=== PATIENT | male | born 1955 | race Caucasian/White ===

== ENCOUNTER 2018-07-11 09:37 | Outpatient (RCR) | payer MEDICAID, SELFPAY ==
[2018-07-11] MEDS: Normal Saline Flush 10 ML SYR IVP (11:10)
[2018-07-11 11:52] LABS: Abs Immature Grans 0.01 k/cumm (0.0-0.09); Absolute Basophil Count 0.02 k/cumm (0.0-0.2); Absolute Eosinophil Count 0.17 k/cumm (0.0-0.7); Absolute Lymphocyte Count 0.41 k/cumm (1.2-3.4); Absolute Monocyte Count 0.37 k/cumm (0.11-0.7); Absolute Neutrophil Count 3.48 k/cumm (1.2-6.7); Basophils % 0.4; Eosinophils % 3.8; HCT 32.9 % (40.0-50.0); HGB 10.3 g/dL (13.5-17.5); Immature Grans % 0.2; Lymphocytes % 9.2; Mean Corp. HGB Concentration 31.3 g/dL (32.0-36.0); Mean Corpuscular Hemoglobin 27.1 pg (27.0-33.0); Mean Corpuscular Volume 86.6 fL (80-95); Monocytes % 8.3; Neutrophils % 78.1; Platelet Count 351 x1000/uL (130-400); RBC Distribution Width 16.5 % (11.8-14.1); White Blood Cell Count 4.46 k/cumm (4.4-10.8)
[2018-07-11 12:03] LABS: ALT 19 U/L (12-78); AST 16 U/L (15-37); Albumin 2.9 g/dL (3.4-5.0); Alkaline Phosphatase 116 U/L (46-116); BUN 6 mg/dL (7-18); Bilirubin, Total 0.3 mg/dL (0.2-1.0); CREATININE 0.69 mg/dL (0.70-1.30); Calcium 9.2 mg/dL (8.5-10.1); Chloride 100 mmol/L (98-107); Glucose 86 mg/dL (70-100); Potassium 3.7 mmol/L (3.5-5.1); Sodium 137 mmol/L (136-145); Total Protein 6.8 g/dL (6.4-8.2)
== END 2018-07-19 ==
LOC: INF 09:37
PROVIDERS: PCP Family Medicine; Visit Provider Nurse Practitioner Adult Health
DX: C09.1 Malignant neoplasm of tonsillar pillar (anterior) (posterior) (principal); Z45.2 Encounter for adjustment and management of vascular access device
CPT/HCPCS: 36591; 80053; 85025

== ENCOUNTER → 2018-07-11 10:56 | Outpatient (CLI) | payer MEDICAID, SELFPAY ==
--- NOTE | 2018-07-11 11:02 | DI.REPORT_ITS ---
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 There is a right subclavian indwelling catheter, the tip of which overlies the superior vena cava. An apparent drainage catheter overlies upper abdomen. Cardiac size is within normal limits. No pleural effusion seen. There is nodular radiodensity projected over the right mid lung laterally. Although this could be associated with the rib, the possibility of intrapulmonary mass is raised. Chest CT is suggested for correlation. Otherwise lungs appear clear. No pleural effusion seen. CONCLUSION: Question right intrapulmonary nodule laterally in the mid-lung. Chest CT suggested for further evaluation.
== END ==
PROVIDERS: PCP Family Medicine; Visit Provider Nurse Practitioner Adult Health
DX: C09.9 Malignant neoplasm of tonsil, unspecified (principal); R91.1 Solitary pulmonary nodule
CPT/HCPCS: 71046

== ENCOUNTER 2019-03-13 14:10 | Outpatient (CLI) | payer MEDICAID, SELFPAY ==
[2019-03-13 15:19] LABS: TSH 1.77 uIU/mL (0.358-3.74)
== END 2019-03-13 14:30 ==
PROVIDERS: PCP Family Medicine; Visit Provider Nurse Practitioner Adult Health
DX: C09.9 Malignant neoplasm of tonsil, unspecified (principal)
CPT/HCPCS: 36415; 84443

== ENCOUNTER 2019-03-25 15:03 | Outpatient (REF) | payer MEDICAID, SELFPAY ==
[2019-03-25 20:42] LABS: Anion Gap 11.6 mmol/L (3-11); BUN 11 mg/dL (7-18); CO2 27.4 mmol/L (21.0-32.0); CREATININE 0.92 mg/dL (0.70-1.30); Chloride 101 mmol/L (98-107); Glucose 134 mg/dL (70-100); Potassium 4.2 mmol/L (3.5-5.1); Sodium 140 mmol/L (136-145)
== END 2019-03-25 15:23 ==
LOC: NCHCN 15:03
PROVIDERS: PCP Family Medicine; Visit Provider Family Medicine
DX: L21.9 Seborrheic dermatitis, unspecified (principal); N39.46 Mixed incontinence; H66.019 Acute suppurative otitis media with spontaneous rupture of ear drum, unspecified ear
CPT/HCPCS: 80048

== ENCOUNTER 2019-11-24 13:48 | Outpatient (CLI) | payer MEDICAID, SELFPAY ==
[2019-11-24 19:01] LABS: TSH 0.82 uIU/mL (0.36-3.74)
== END 2019-11-24 14:08 ==
PROVIDERS: PCP Family Medicine; Visit Provider Preventive Medicine Undersea and Hyperbaric Medicine
DX: C09.9 Malignant neoplasm of tonsil, unspecified (principal)
CPT/HCPCS: 36415; 84443

== ENCOUNTER 2020-10-26 14:49 | Outpatient (CLI) | payer MEDICAID, SELFPAY ==
[2020-10-26 16:06] LABS: TSH 0.79 uIU/mL (0.36-3.74)
== END 2020-10-26 15:09 ==
PROVIDERS: PCP Family Medicine; Visit Provider Preventive Medicine Undersea and Hyperbaric Medicine
DX: C09.9 Malignant neoplasm of tonsil, unspecified (principal)
CPT/HCPCS: 36415; 84443

== ENCOUNTER 2020-11-08 21:24 | Outpatient (REF) | payer MEDICAID, SELFPAY ==
[2020-11-08 13:54] LABS: HCT 47.2 % (40.0-50.0); HGB 14.9 g/dL (13.5-17.5); MCH 27.4 pg (27.0-33.0); MCHC 31.6 % (32.0-36.0); MCV 86.8 fL (80-95); MPV 10.5 fL (8.0-11.0); Platelet Count 305 10^3/uL (130-400); RBC 5.44 10^6/uL (4.36-5.78); RDW 14.4 % (11.8-14.1); RDW-SD 45.1 fL; WBC 9.84 10^3/uL (4.4-10.8)
[2020-11-08 14:14] LABS: Anion Gap 7.1 mmol/L (3-11); BUN 10 mg/dL (7-18); CO2 29.9 mmol/L (21.0-32.0); CREATININE 0.97 mg/dL (0.70-1.30); Calculated LDL 52 mg/dL (<100); Chloride 102 mmol/L (98-107); Cholesterol 122 mg/dL (<200); Glucose 118 mg/dL (74-106); HDL Cholesterol 39 mg/dL (40-60); Potassium 4.3 mmol/L (3.5-5.1); Sodium 139 mmol/L (136-145); Triglyceride 159 mg/dL (<150)
[2020-11-08 14:20] LABS: Hemoglobin A1C 6.3 % (<5.7)
== END 2020-11-08 21:44 ==
LOC: NCHCN 21:24
PROVIDERS: PCP Family Medicine; Visit Provider Family Medicine
DX: D64.9 Anemia, unspecified (principal); E11.9 Type 2 diabetes mellitus without complications
CPT/HCPCS: 80048; 80061; 85027; 83036

== ENCOUNTER 2020-11-23 01:23 | Outpatient (CLI) | payer MEDICAID, SELFPAY ==
--- NOTE | 2020-11-23 | DI.CT_ITS ---
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 TECHNIQUE: Imaging Protocol: Axial CT angiography was performed with multi-slice acquisition and mu lti-planar and/or 3D reconstructions. CONTRAST MATERIAL: Intravenous: Omnipaque 350 Contrast volume:100 cc COMPARISON: CT HEAD AND CSPINE W/O CONTRAST from 03/14/2018 FINDINGS: CTA Neck With: The aortic arch anatomy is conventional ANTERIOR CIRCULATION: Left common carotid artery exhibits significant mural plaque both calcified and noncalcified in the n nicolasa and at the carotid bulb. There is heavily calcified plaque at the origin of the left internal ca rotid artery with a focal critical cyst stenosis estimated over 90 percent at this level. Above this level the internal carotid artery is patent in the left side of the neck as well as in the visualize d skull base. Right common carotid artery also exhibits significant calcified and noncalcified plaque and heavily c alcified plaque at the bulb and proximal internal carotid artery with significant tight stenosis in t he proximal ICA ICA approximately 80-90 percent. Patent above this level in the upper neck. POSTERIOR CIRCULATION: The left vertebral artery originates as an independent vessel off the aortic arch. It does not arise in conventional fashion off the left subclavian artery. \ Heart thin vessels in the foramen transverse area. The right vertebral artery appears occluded proxi sanchez. The left vertebral artery is thin vessel and contributes to the formation the thin basilar ar holden at the skull base. Please note that brain was not included in this CTA study. IMPRESSION: 1. There is abundant plaque in the carotid arteries with high-grade stenosis in both proximal interna l carotid arteries. 2. Right vertebral artery appears occluded. Left vertebral artery is a thin vessel. In addition, it originates off the aortic arch is an independent vessel instead of originating off of the left subcl mohini artery, as is usually the case. RADIATION DOSE DELIVERED: 367.91mGy.cm Total DLP DATA REPOSITORY: All CT scans at this facility are submitted to the National Radiology Data Registry (NRDR) Dose Index Registry (DIR) with the [employer] ([employer]). RADIATION OPTIMIZATION: All CT scans at this facility use at least one of these dose optimization te chniques: automated exposure control; mA and/or kV adjustment per patient size (includes targeted exa ms where dose is matched to clinical indication); or iterative reconstruction.
[2020-11-23] MEDS: Omnipaque 350 MG/ML 100 ML BTL IJ (15:42)
[2020-11-23] MEDS: Normal Saline - Diluent 50 ML VIAL IV (15:43)
== END 2020-11-23 01:43 ==
PROVIDERS: PCP Family Medicine; Visit Provider Family Medicine
DX: I65.23 Occlusion and stenosis of bilateral carotid arteries (principal); R68.89 Other general symptoms and signs; C09.9 Malignant neoplasm of tonsil, unspecified
CPT/HCPCS: 70491; J3490

== ENCOUNTER 2021-05-18 14:16 | Outpatient (REF) | payer MEDICAID, SELFPAY ==
[2021-05-18 16:36] LABS: COMMENT (LAB VIEW ONLY) 155.32 mg/dL; Microalb ug/mg Crea 49.8 ug/mg Cr
== END 2021-05-18 14:17 | disposition home or self-care (01) ==
LOC: NCHCN 14:16
PROVIDERS: PCP Family Medicine; Visit Provider Family Medicine
DX: E11.9 Type 2 diabetes mellitus without complications (principal); R82.998 Other abnormal findings in urine
CPT/HCPCS: 87077; 82043; 82570; 87086; 87186

== ENCOUNTER 2022-01-23 16:36 | Outpatient (REF) | payer MEDICAID, SELFPAY ==
[2022-01-23 19:27] LABS: MCH 25.7 pg (27.0-33.0); MCHC 29.8 % (32.0-36.0); MCV 86.2 fL (80-95); MPV 9.5 fL (8.0-11.0); Platelet Count 483 10^3/uL (130-400); RBC 5.45 10^6/uL (4.36-5.78); RDW 15.3 % (11.8-14.1); RDW-SD 47.9 fL; WBC 13.78 10^3/uL (4.4-10.8)
[2022-01-23 20:05] LABS: ALT 32 U/L (16-63); AST 34 U/L (15-37); Albumin 3.8 g/dL (3.4-5.0); Alkaline Phosphatase 112 U/L (46-116); Anion Gap 9.7 mmol/L (3-11); BUN 18 mg/dL (7-18); Bilirubin, Total 0.3 mg/dL (0.2-1.0); CO2 28.3 mmol/L (21.0-32.0); CREATININE 0.8 mg/dL (0.70-1.30); Calcium 10.2 mg/dL (8.5-10.1); Chloride 103 mmol/L (98-107); Folate 16.4 ng/mL (8.6-20.0); Glucose 129 mg/dL (74-106); Magnesium 1.9 mg/dL (1.8-2.4); Potassium 4.2 mmol/L (3.5-5.1); Sodium 141 mmol/L (136-145); Total Protein 7.5 g/dL (6.4-8.2)
[2022-01-23 20:16] LABS: PHOSPHORUS 4.2 mg/dL (2.6-4.7)
[2022-01-24 14:50] LABS: Vitamin B12 373 pg/mL (193-986)
== END 2022-01-23 16:37 | disposition home or self-care (01) ==
LOC: NCHCN 16:36
PROVIDERS: PCP Family Medicine; Visit Provider Family Medicine
DX: R63.6 Underweight (principal); D64.9 Anemia, unspecified
CPT/HCPCS: 80053; 85027; 82607; 82746; 83735; 84100